=== PATIENT | female | born 2000 | race African-American/Black ===

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

== ENCOUNTER 2020-08-22 02:10 | Observation (INO) | payer MEDICAID ==
[~2020-08-22] VITALS: Ht 157.5 cm; Wt 72.6 kg
[2020-08-22] MEDS ORDERED: LACTATED RINGERS 1,000 ML IV SCH (03:30)
[2020-08-22] MEDS ORDERED: PNV1TABL61 PO (04:10)
[2020-08-22] MEDS ORDERED: ASPI-1497 MT (04:10)
[2020-08-22 04:41] LABS: CLARITY URINE CLOUDY (CLEAR); COLOR URINE YELLOW (YELLOW); KETONES URINE 2+ (NEGATIVE); LEUKOCYTE ESTERASE URINE 3+ (NEGATIVE); NITRITE URINE NEGATIVE (NEGATIVE); OCCULT BLOOD URINE NEGATIVE (NEGATIVE); PROTEIN URINE 1+ (NEGATIVE); SPECIFIC GRAVITY URINE 1.018 (1.005-1.030)
[2020-08-22 04:46] LABS: CHLORIDE 105 mEq/L (98-107)
[2020-08-22] MEDS ORDERED: TERBUTALINE SULFATE 1MG/ML VIAL SUBCUT NR (06:00)
[2020-08-22] MEDS ORDERED: CEFAZOLIN 2,000 MG in DEXT 5% WATER 100 ML IV SCH (07:30)
[2020-08-22] MEDS ORDERED: CEFAZOLIN SODIUM 1000MG/VIAL ONE (07:45)
== END 2020-08-22 08:35 | disposition home or self-care (01) ==
LOC: 8 EST LDRP 02:10
PROVIDERS: ADMIT Obstetrics & Gynecology; ATTEND Obstetrics & Gynecology
DX: O21.2 Late vomiting of pregnancy (principal); O26.893 Other specified pregnancy related conditions, third trimester; R10.30 Lower abdominal pain, unspecified; Z3A.34 34 weeks gestation of pregnancy
CPT/HCPCS: 36415; 59025; 76805; 80053; 81003; 82731; 87086; 87340; 96361; 96365; 96372; G0378; J0690; J3105; J7060; 59412; 96360; 99281